=== PATIENT | male | born 1980 | race Caucasian/White ===

== ENCOUNTER 2016-07-11 20:09 | Emergency (ER) | payer BC ==
[2016-07-11] MEDS ORDERED: IPRATROPIUM/ALBUTEROL (0.5MG/3MG) NEB INH ONE (20:33)
--- NOTE | 2016-07-11 20:38 | Emergency Department Record ---
History of Present Illness - General Chief Complaint: Cough Stated Complaint: COUGHA AND SINUSE CONGESTION Time Seen by Provider: 07/11/16 20:33 Source: Patient Mode of Arrival: Ambulatory Limitations: No limitations - History of Present Illness Initial Comments: 36 yo male presents with 3-4 days of cough, congestion, drainage, sinus pressure , sore throat. He was seen in a [facility] care and started a Zpack 2 days ago. He is a smoker. NO NVD. No rash. The symptoms seem to have worsened. No history of asthma or pneumonia. He has GHISLAINE and uses CPAP. He is a smoker (He was encouraged to stop) MD Complaint: Cough, Fever, Rhinorrhea, Sore throat Onset/Timin -: Days(s) Severity: Moderate Severity scale (1-10): >10 Quality: Aching Consistency: Constant Worsens With: Other (Cough) Associated Symptoms: Cough, Hoarseness, Nasal congestion, Sore throat Treatments Prior to Arrival: Antibiotics, Other - Related Data Home Medications Medication Instructions Recorded Confirmed Last Taken Alprazolam [Xanax] 0.25 mg PO Q8H 11/28/15 07/11/16 07/10/16 Methylphenidate HCl [Ritalin] 10 mg PO DAILY 11/28/15 07/11/16 07/10/16 Trazodone HCl 100 mg PO QHS 11/28/15 07/11/16 07/10/16 Azithromycin [Zithromax] 250 mg PO DAILY 07/11/16 07/11/16 07/11/16 Previous Rx's Medication Instructions Recorded Ibuprofen [Motrin] 800 mg PO Q6H PRN #30 tab 11/28/15 Prednisone [Prednisone 20Mg] 20 mg PO BID #10 tab 07/11/16 Allergies Allergy/AdvReac Type Severity Reaction Status Date / Time Penicillins Allergy Unknown PT UNSURE Verified 07/11/16 20:32 OF REACTION Travel Screening - Travel/Exposure Within Last 30 Days Have you traveled within the last 30 days?: No - Travel/Exposure Within Last Year Have you traveled outside the [place] in the last year?: No - Additonal Travel Details Have you been exposed to anyone with a communicable illness?: No - Travel Symptoms Symptom Screening: None Review of Systems Constitutional: Reports: Chills, Fever, Malaise. Denies: Weakness Eyes: Denies: Eye discharge, Eye pain, Photophobia, Vision change ENT: Reports: Congestion, Throat pain Respiratory: Reports: Cough, Wheezes. Denies: Dyspnea, Hemoptysis, Stridor Cardiovascular: Denies: Chest pain, Palpitations, Syncope Endocrine: Reports: Fatigue. Denies: Polydipsia, Polyuria Gastrointestinal: Denies: Abdominal pain, Diarrhea, Nausea, Vomiting Genitourinary: Denies: Discharge, Dysuria, Frequency, Hematuria Musculoskeletal: Denies: Arthralgia, Back pain, Joint swelling, Myalgia, Neck pain Skin: Denies: Bruising, Change in color, Rash Neurological: Denies: Headache Psychiatric: Denies: Anxiety Hematological/Lymphatic: Denies: Blood Clots, Easy bleeding, Easy bruising, Swollen glands Past Medical History - SOCIAL HISTORY Smoking Status: Current every day smoker Alcohol Use: None Drug Use: None - RESPIRATORY Hx Respiratory Disorders: Yes Hx Sleep Apnea: Yes - CARDIOVASCULAR Hx Cardio Disorders: Yes Hx Hypertension: Yes - NEURO Hx Neuro Disorders: No - GI Hx GI Disorders: No - Hx Genitourinary Disorders: No - ENDOCRINE Hx Endocrine Disorders: No Hx Diabetes: No Hx Thyroid Disease: No - MUSCULOSKELETAL Hx Musculoskeletal Disorders: No - PSYCH Hx Psych Problems: No - HEMATOLOGY/ONCOLOGY Hx Hematology/Oncology Disorders: No Family Medical History Any Significant Family History?: No Hx Cancer: Mother Hx Heart Disease: Father Hx HTN: Father Physical Exam - General General Appearance: Alert, Oriented x3, Cooperative, No acute distress Limitations: No limitations - Head Head exam: Normal inspection - Eye Eye exam: Normal appearance, PERRL. negative: Conjunctival injection, Periorbital swelling - ENT ENT exam: Normal exam, Mucous membranes moist, Normal orophraynx, TM's normal bilaterally Ear exam: Normal external inspection. negative: External canal tenderness Nasal Exam: Discharge, Sinus tenderness. negative: Active bleeding, Dried blood , Foreign body Mouth exam: Normal external inspection, Tongue normal Teeth exam: Normal inspection. negative: Dental caries Throat exam: Tonsillar erythema. negative: Tonsillomegaly, Tonsillar exudate, R peritonsillar mass, L peritonsillar mass - Neck Neck exam: Normal inspection, Full ROM. negative: Tenderness - Respiratory Respiratory exam: Decreased breath sounds, Rhonchi, Wheezes, Other (Wheezing but non labored with a normal work of breathing). negative: Normal lung sounds bilaterally, Accessory muscle use, Chest wall tenderness, Prolonged expiratory, Respiratory distress - Cardiovascular Cardiovascular Exam: Regular rate, Normal rhythm, Normal heart sounds - GI/Abdominal GI/Abdominal exam: Soft. negative: Tenderness - Rectal Rectal exam: Deferred - exam: Deferred - Extremities Extremities exam: Normal inspection, Full ROM, Normal capillary refill. negative: Tenderness - Back Back exam: Reports: Normal inspection, Full ROM. Denies: Muscle spasm, Rash noted, Tenderness - Neurological Neurological exam: Alert, Normal gait, Oriented X3 - Psychiatric Psychiatric exam: Normal affect, Normal mood - Skin Skin exam: Dry, Intact, Normal color, Warm Course Vital Signs 07/11/16 20:23 Temperature 98.8 F Pulse Rate 101 H Respiratory 18 Rate Blood Pressure 154/95 Pulse Ox 96 - Reevaluation(s) Reevaluation #1: RT in room for a Duoneb. 07/11/16 20:37 Reevaluation #2: The patient was rechecked after the Duoneb He has some remaining wheeze but his air exchange is much improved. Few scattered rhonchi. 07/11/16 20:54 Reevaluation #3: The CXR was reviewed Prelim is negative for acute process His influenza was negative He will be provided a prescription for Prednisone, He will continue his Zithromax RT will teach and dispense an inhaler in the ED 07/11/16 21:19 Reevaluation #4: Final CXR read was negative 07/11/16 21:26 Disposition Disposition: Discharge Clinical Impression: Bronchitis, Wheezing Disposition: Home, Self-Care Condition: (1) Good Instructions: Reactive Airways Disease (ED), Acute Bronchitis (ED) Additional Instructions: Return if worse, fever, short of breath You may use the inhaler every 4 hours Continue the Zithromax until gone Prescriptions: Prednisone [Prednisone 20Mg] 20 mg PO BID #10 tab Forms: Patient Portal Access Time of Disposition: 21:23
[2016-07-11] MEDS ORDERED: METHYLPREDNISOLONE PF 125MG/VIAL IVP SCH (20:45)
[2016-07-11 21:04] LABS: INFLUENZA A NEGATIVE (NEGATIVE); INFLUENZA B NEGATIVE (NEGATIVE)
[2016-07-11] MEDS ORDERED: IPRATROPIUM/ALBUTEROL 4 GM INH INH PRN (21:22)
--- NOTE | 2016-07-17 10:43 | RADIOLOGY REPORT ---
DATE: 07/11/2016. EXAM: TWO-VIEW CHEST. HISTORY: Difficulty breathing. TECHNIQUE: Frontal and lateral views of the chest were performed. FINDINGS: Heart size is normal. No pulmonary vascular congestion. No infiltrate or pleural effusion. The osseus structures are normal. IMPRESSION: NO ACUTE DISEASE PROCESS. JOB NUMBER: [id number] MTDD
== END 2016-07-11 21:39 | disposition home or self-care (01) ==
LOC: ER 20:09
DX: J20.9 Acute bronchitis, unspecified (principal); R06.2 Wheezing; R51 Headache; I10 Essential (primary) hypertension; F17.210 Nicotine dependence, cigarettes, uncomplicated
CPT/HCPCS: 71020; 87400; 94640; 94664; 96374; 99284; J2930